=== PATIENT | female | born 1985 ===

== ENCOUNTER 2017-08-13 17:57 | Emergency (ER) | payer OTHER ==
[~2017-08-13] VITALS: Ht 154.9 cm; Wt 56.4 kg
[2017-08-13 18:15] VITALS: TEMP 37.1; Ht 154.9 cm; Wt 56.4 kg
[2017-08-13] MEDS ORDERED: SODIUM CHLORIDE 0.9% 1000ML 1,000 ML IV STA (18:31)
--- NOTE | 2017-08-13 18:47 | EMERGENCY ROOM VISIT NOTE ---
ED Visit Note First contact with patient: 18:21 CHIEF COMPLAINT: Vaginal bleeding HISTORY OF PRESENT ILLNESS: This 31-year-old female presents to the emergency department with complaint of vaginal bleeding and abdominal cramping. She states she has a proximally 10 weeks , she has not had her ultrasound done yet and is scheduled to have this done on the . She states she has had some intermittent vaginal bleeding/spotting since the beginning of the , however this seemed to have slowed down. She states the bleeding started again 2 days ago and today she began to have abdominal cramping, low back pain, and heavier bleeding with some clots. She is A1(elective ). She does not feel dizzy, weak, or faint. There has been no sweating or loss of consciousness. She denies trauma to the abdomen, recent illnesses, or fever. She denies any chest pain, shortness of breath. REVIEW OF SYSTEMS: Head: No headache, injury or neck pain. Neck: No pain, stiffness, or swelling. Neurological: No headache, new changes in mental status, vertigo, focal weakness, numbness. Cardiac: No chest pain, diaphoresis , dyspnea on exertion, orthopnea, pedal edema, or palpitations. Respiratory: No cough, change in sputum, wheezes, hemoptysis, shortness of breath, or stridor. Gastrointestinal: No blood in stools, diarrhea, loss of appetite, nausea, or vomiting. Skin: No rash, new lesions, or masses. PMH: The patient is healthy; there is no significant medical or surgical history. SOCIAL HISTORY: Patient lives at home. PHYSICAL EXAM: Vital Signs: Reviewed Nurse's notes. CONSTITUTIONAL: No acute distress. Well appearing and well nourished. Alert and oriented X 4 with normal affect. HEENT: Normocephalic, atraumatic. Pupils equal, round and reactive to light, EOMI. TMs normal. Pharynx normal. Moist membranes. NECK: Supple, full active range of motion without discomfort. RESPIRATORY: Clear to auscultation bilaterally with no wheezing, crackles, rhonchi or stridor. Equal expansion bilaterally. CARDIOVASCULAR: Regular rate and rhythm with no murmurs, rubs or gallops. Normal peripheral perfusion. No edema. GASTROINTESTINAL: Soft, mildly tender in the suprapubic region, no rebound or guarding, nondistended. Bowel sounds present in all quadrants. PELVIC EXAM: Deferred per patient request. MUSCULOSKELETAL: Full range of motion of all joints without discomfort. INTEGUMENTARY: No rash or other significant dermatologic conditions noted. NEUROLOGIC: Cranial nerves II-XII grossly intact. No focal neurologic deficits noted. IMAGING: PELVIC ULTRASOUND CLINICAL HISTORY: 10 weeks , abdominal pain and bleeding, r/o ectopic, miscarriage COMPARISON STUDY: None. FINDINGS: Transabdominal and transvaginal scanning was performed. There is a single intrauterine gestational sac, yolk sac, and pole. The yolk sac is abnormally enlarged at 7 mm. The pole was 1.1 cm consistent with a 7 week and 1 day intrauterine gestation. However, there is no cardiac motion identified. Small subchorionic hematoma. The ovaries are within normal limits. IMPRESSION: A single intrauterine gestational sac demonstrated to be 7 week and 1 day. However, there is no cardiac activity identified and the pole was measured at 1.1 cm. Therefore, by definition, this is consistent with a failed intrauterine . EMERGENCY DEPARTMENT COURSE: I examined the patient. Differential diagnosis includes threatened miscarriage, bleeding in early , UTI, ectopic , among others. She is Rh positive. CBC shows no acute anemia. HCG beta Quant significantly elevated, this will need to be trended. Pelvic ultrasound shows most likely a demise, with no cardiac activity noted. I spoke on the phone with Dr. Christopher, [facility], regarding the patient 's ultrasound findings. He states the patient can call the clinic tomorrow for close follow-up. I updated the patient on all results and answered all questions at this time. Patient states she is only having light bleeding and small amounts of clots, denies any heavy bleeding, and she would like to defer the pelvic exam at this time. Since she is not having heavy amounts of bleeding or significant pain and her workup has been otherwise unremarkable, I feel comfortable with not performing a pelvic exam at this time. Patient was instructed to call [facility] tomorrow morning to set up a close follow-up appointment, she verbalized understanding. Patient was also given strict return precautions should her symptoms worsen, she verbalized understanding of these. Patient was discharged home in stable condition and ambulatory. The patient was discussed with Dr. Watkins, she agrees with my assessment and plan. Current/Historical Medications No Active Prescriptions or Reported Meds Allergies Coded Allergies: Apple (Verified Allergy, Severe, LIPS ITCH/THROAT SWELLS, 08/13/17) Potato (Verified Allergy, Intermediate, WATERY, ITCHY EYES, 08/13/17) Vital Signs Date Time Temp Pulse Resp B/P (MAP) Pulse Ox O2 Delivery O2 Flow Rate FiO2 08/13/17 20:59 59 16 100/66 100 Room Air 08/13/17 18:15 37.1 71 20 118/74 99 Room Air Laboratory Results 08/13/17 18:40 Red Blood Count 4.33, Mean Corpuscular Volume 90.5, Mean Corpuscular Hemoglobin 31.2, Mean Corpuscular Hemoglobin Concent 34.4, Mean Platelet Volume 11.7, Neutrophils (%) (Auto) 70.1, Lymphocytes (%) (Auto) 21.2, Monocytes (%) (Auto) 6.9, Eosinophils (%) (Auto) 1.2, Basophils (%) (Auto) 0.3, Neutrophils # (Auto) 5.25, Lymphocytes # (Auto) 1.59, Monocytes # (Auto) 0.52, Eosinophils # (Auto) 0.09, Basophils # (Auto) 0.02 08/13/17 18:40 Test 08/13/17 18:40 08/13/17 19:45 White Blood Count 7.49 K/uL (4.8-10.8) Red Blood Count 4.33 M/uL (4.2-5.4) Hemoglobin 13.5 g/dL (12.0-16.0) Hematocrit 39.2 % (37-47) Mean Corpuscular Volume 90.5 fL (80-100) Mean Corpuscular Hemoglobin 31.2 pg (25-34) Mean Corpuscular Hemoglobin Concent 34.4 g/dl (32-36) Platelet Count 173 K/uL (130-400) Mean Platelet Volume 11.7 fL (7.4-10.4) Neutrophils (%) (Auto) 70.1 % Lymphocytes (%) (Auto) 21.2 % Monocytes (%) (Auto) 6.9 % Eosinophils (%) (Auto) 1.2 % Basophils (%) (Auto) 0.3 % Neutrophils # (Auto) 5.25 K/uL (1.4-6.5) Lymphocytes # (Auto) 1.59 K/uL (1.2-3.4) Monocytes # (Auto) 0.52 K/uL (0.11-0.59) Eosinophils # (Auto) 0.09 K/uL (0-0.5) Basophils # (Auto) 0.02 K/uL (0-0.2) RDW Standard Deviation 43.6 fL (36.4-46.3) RDW Coefficient of Variation 13.1 % (11.5-14.5) Immature Granulocyte % (Auto) 0.3 % Immature Granulocyte # (Auto) 0.02 K/uL (0.00-0.02) Anion Gap 9.0 mmol/L (3-11) Est Creatinine Clear Calc Drug Dose 118.2 ml/min Estimated GFR () 147.6 Estimated GFR (Non- 127.3 BUN/Creatinine Ratio 7.9 (10-20) Calcium Level 8.8 mg/dl (8.5-10.1) Total Bilirubin 1.0 mg/dl (0.2-1) Aspartate Amino Transf (AST/SGOT) 21 U/L (15-37) Alanine Aminotransferase (ALT/SGPT) 24 U/L (12-78) Alkaline Phosphatase 69 U/L (45-117) Total Protein 7.6 gm/dl (6.4-8.2) Albumin 3.9 gm/dl (3.4-5.0) Globulin 3.7 gm/dl (2.5-4.0) Albumin/Globulin Ratio 1.1 (0.9-2) Human Chorionic Gonadotropin, Quant 05777 mIU/mL Urine Color YELLOW Urine Appearance CLEAR (CLEAR) Urine pH 7.0 (4.5-7.5) Urine Specific [place] 1.019 (1.000-1.030) Urine Protein NEG (NEG) Urine Glucose (UA) NEG (NEG) Urine Ketones NEG (NEG) Urine Occult Blood 2+ (NEG) Urine Nitrite NEG (NEG) Urine Bilirubin NEG (NEG) Urine Urobilinogen NEG (NEG) Urine Leukocyte Esterase MODERATE (NEG) Urine WBC (Auto) 1-5 /hpf (0-5) Urine RBC (Auto) 0-4 /hpf (0-4) Urine Hyaline Casts (Auto) 1-5 /lpf (0-5) Urine Epithelial Cells (Auto) >30 /lpf (0-5) Urine Bacteria (Auto) NEG (NEG) Medications Administered Medications (Trade) Dose Ordered Sig/Brandy Route Start Time Stop Time Status Last Admin Dose Admin Sodium Chloride 1,000 ml @ 999 mls/hr Q1H1M STAT IV 08/13/17 18:31 08/13/17 19:31 DC 08/13/17 18:31 999 MLS/HR Departure Information Impression Primary Impression: demise Additional Impression: Vaginal bleeding Dispostion Home / Self-Care Condition GOOD Prescriptions No Active Prescriptions or Reported Meds Referrals No Doctor, Assigned (PCP) Patient Instructions ED Miscarriage Inevitable, My [facility] Additional Instructions You should follow-up with OB in the next few days. Please call [facility]'s [facility] OB office at tomorrow morning to have an appointment scheduled for follow-up. You should expect to have some heavy bleeding/blood clots and abdominal cramping similar to period cramping over the next few days. You may take Tylenol or ibuprofen as needed for pain. You may use a heating pad to your abdomen and back or soak in a warm bath for comfort. Please return to the ER for any worsening symptoms, including severe abdominal pain, heavy vaginal bleeding (soaking through more than 1 pad per hour), dizziness or passing out, fevers/chills/feeling ill, or any other concerns. Work Instructions Return To Work: 3 days Problem Qualifiers
[2017-08-13 18:51] LABS: BASO % 0.3 %; BASO ABS # 0.02 K/uL (0-0.2); COMPLETE YES; EOS % 1.2 %; HEMATOCRIT 39.2 % (37-47); IG% 0.3 %; LYMPH % 21.2 %; LYMPH ABS # 1.59 K/uL (1.2-3.4); MEAN CELL VOLUME 90.5 fL (80-100); MEAN CORPUSCULAR HEMOGLOBIN 31.2 pg (25-34); MEAN CORPUSCULAR HGB CONC 34.4 g/dl (32-36); MEAN PLATELET VOLUME 11.7 fL (7.4-10.4); MONO % 6.9 %; NEUT % 70.1 %; PLATELET COUNT 173 K/uL (130-400); RED BLOOD COUNT 4.33 M/uL (4.2-5.4); WHITE BLOOD COUNT 7.49 K/uL (4.8-10.8)
[2017-08-13 19:12] LABS: BUN/CREATININE RATIO 7.9 (10-20); CALCIUM 8.8 mg/dl (8.5-10.1); CREATININE 0.52 mg/dl (0.60-1.20); POTASSIUM 3.2 mmol/L (3.5-5.1)
[2017-08-13 19:15] LABS: ALB/GLOB RATIO 1.1 (0.9-2)
--- NOTE | 2017-08-13 20:06 | DIAGNOSTIC IMAGING REPORT ---
PELVIC ULTRASOUND CLINICAL HISTORY: 10 weeks , abdominal pain and bleeding, r/o ectopic, miscarriage COMPARISON STUDY: None. FINDINGS: Transabdominal and transvaginal scanning was performed. There is a single intrauterine gestational sac, yolk sac, and pole. The yolk sac is abnormally enlarged at 7 mm. The pole was 1.1 cm consistent with a 7 week and 1 day intrauterine gestation. However, there is no cardiac motion identified. Small subchorionic hematoma. The ovaries are within normal limits. IMPRESSION: A single intrauterine gestational sac demonstrated to be 7 week and 1 day. However, there is no cardiac activity identified and the pole was measured at 1.1 cm. Therefore, by definition, this is consistent with a failed intrauterine . Electronically signed by: Harshal Dozier M.D. 08/13/2017 8:05 PM Dictated Date/Time: 08/13/2017 7:56 PM
[2017-08-13 20:07] LABS: URINE APPEARANCE CLEAR (CLEAR); URINE BILIRUBIN NEG (NEG); URINE COLOR YELLOW; URINE EPITHELIAL CELL AUTO >30 /lpf (0-5); URINE NITRITE NEG (NEG); URINE SPECIFIC GRAVITY 1.019 (1.000-1.030); UROBILINOGEN NEG (NEG)
[2017-08-13 20:19] LABS: MANUAL MICROSCOPIC REQUIRED? NO; REVIEW REQ? NO
[2017-08-13 20:59] VITALS: BP 100/66; PULSE 59; O2SAT 100
== END 2017-08-13 21:25 | disposition home or self-care (01) ==
LOC: C.EDB 18:01 → C.EDC 21:25
DX: O36.4XX1 Maternal care for intrauterine death, fetus 1 (principal); O20.8 Other hemorrhage in early pregnancy; Z3A.10 10 weeks gestation of pregnancy

== ENCOUNTER 2017-08-16 08:06 | Emergency (ER) | payer OTHER ==
[~2017-08-16] VITALS: Ht 154.9 cm; Wt 55.8 kg
[2017-08-16 08:09] VITALS: TEMP 36.9; Ht 154.9 cm; Wt 55.8 kg
[2017-08-16 09:10] VITALS: O2SAT 99
[2017-08-16 09:17] LABS: BASO % 0.3 %; BASO ABS # 0.02 K/uL (0-0.2); COMPLETE YES; EOS % 1.5 %; HEMATOCRIT 39.9 % (37-47); IG% 0.2 %; LYMPH ABS # 1.54 K/uL (1.2-3.4); MEAN CELL VOLUME 90.5 fL (80-100); MEAN CORPUSCULAR HEMOGLOBIN 30.8 pg (25-34); MEAN CORPUSCULAR HGB CONC 34.1 g/dl (32-36); MEAN PLATELET VOLUME 11.8 fL (7.4-10.4); MONO % 5.2 %; NEUT % 67.8 %; PLATELET COUNT 168 K/uL (130-400); RED BLOOD COUNT 4.41 M/uL (4.2-5.4); WHITE BLOOD COUNT 6.16 K/uL (4.8-10.8)
[2017-08-16 09:25] LABS: INR 1.1 (0.9-1.1); PROTHROMBIN TIME (PATIENT) 11.9 SECONDS (9.0-12.0)
[2017-08-16 09:34] LABS: BUN/CREATININE RATIO 10.8 (10-20); CALCIUM 8.9 mg/dl (8.5-10.1); CREATININE 0.59 mg/dl (0.60-1.20); POTASSIUM 3.6 mmol/L (3.5-5.1)
[2017-08-16 09:37] LABS: ALB/GLOB RATIO 1.1 (0.9-2)
[2017-08-16 09:41] LABS: URINE APPEARANCE CLEAR (CLEAR); URINE BILIRUBIN NEG (NEG); URINE COLOR DK YELLOW; URINE EPITHELIAL CELL AUTO >30 /lpf (0-5); URINE NITRITE NEG (NEG); URINE PH 6.5 (4.5-7.5); URINE SPECIFIC GRAVITY 1.022 (1.000-1.030); UROBILINOGEN NEG (NEG)
[2017-08-16 09:47] LABS: MANUAL MICROSCOPIC REQUIRED? NO; REVIEW REQ? NO
--- NOTE | 2017-08-16 10:59 | DIAGNOSTIC IMAGING REPORT ---
LIMITED (US) CLINICAL HISTORY: POSSIBLE SPONTANEOUS /PASSED PROD OF CONCEPTION COMPARISON STUDY: ultrasound 08/13/2017. FINDINGS: The intrauterine gestational sac seen on the prior study is no longer visualized and has likely passed in the interval consistent with a spontaneous . The endometrium is slightly heterogeneous and measures up to 9 mm in thickness. No significant color flow within the endometrium. Normal ovaries. 4 mm cystic focus within the right side of the endometrial fundus. IMPRESSION: 1. The intrauterine gestational sac seen on the prior study is no longer visualized and has likely passed in the interval consistent with a spontaneous . 2. No significant color-flow within the heterogeneous endometrium to suggest retained products of conception. 3. There is a 4 mm indeterminate cystic focus within the right side of the endometrium. This could represent a small amount of focal hemorrhage versus retained products of conception. Follow-up pelvic ultrasound and serial beta hCGs is recommended to ensure resolution of this nonspecific finding. Electronically signed by: Harshal Dozier M.D. 08/16/2017 10:58 AM Dictated Date/Time: 08/16/2017 10:49 AM
[2017-08-16 11:34] VITALS: BP 90/56; PULSE 65; O2SAT 98
--- NOTE | 2017-08-16 17:09 | EMERGENCY ROOM VISIT NOTE ---
History First contact with patient: 08:19 Chief Complaint: ED VAG BLEEDING Stated Complaint: MISCARRIAGE History of Present Illness The patient is a 31 year old female who presents to the Emergency Room with complaints of a possible miscarriage. The patient reports that she was in the emergency department 3 days ago with an ultrasound suggesting demise. She was then seen yesterday by Dr. Christopher, [facility], with recommendations to follow -up in their office in 2 weeks if the patient does not have any passage of products of conception.. The patient reports that she got up to go to the bathroom today and had notable vaginal bleeding. She also passed a large amount of tissue. The patient did collect the tissue and brought it with her. The patient reports that she did soak a large pad and one hour, but feels that the bleeding is slowing down. She denies any significant abdominal cramping, nausea, diarrhea or constipation. She rates her discomfort a 3 out of 10. OB history was A1 with her prior being elective. Review of Systems HEENT: Denies dizziness, visual problems, hearing loss, tinnitus. Denies difficulty swallowing or oral lesions. PULMONARY: Denies cough, shortness of breath, sputum production or hemoptysis. CARDIOVASCULAR: Denies chest pain, palpitations, dyspnea on exertion, orthopnea or peripheral edema. GASTROINTESTINAL: Denies diarrhea, constipation, nausea, vomiting, or abdominal pain. GENITOURINARY: Denies dysuria, frequency, urgency or nocturia. Otherwise see history of present illness. NEUROLOGIC: Denies history of epilepsy, CVA, TIA or chronic headaches. MUSCULOSKELETAL: Denies history of joint tenderness/swelling. SKIN: Denies rashes or lesions. PSYCHIATRIC: Denies history of depression or mental illness. ENDOCRINE: Denies history of diabetes or thyroid disorders. Past Medical/Surgical History Medical Problems: (1) No significant past medical history Surgical Problems: (1) History of elective Family History Unremarkable Social History Smoking Status: Never Smoker Alcohol Use: none Drug Use: none Marital Status: Current/Historical Medications No Active Prescriptions or Reported Meds Physical Exam Vital Signs Date Time Temp Pulse Resp B/P (MAP) Pulse Ox O2 Delivery O2 Flow Rate FiO2 08/16/17 11:34 65 18 90/56 98 Room Air 08/16/17 09:57 61 18 106/56 96 Room Air 08/16/17 09:10 99 Room Air 08/16/17 08:09 36.9 73 16 112/61 100 Room Air Physical Exam CONSTITUTIONAL: Healthy and well nourished. Alert and oriented X 3 with positive affect. She does not appear in any acute distress. HEENT: Normocephalic, atraumatic. Pupils equal, round and reactive. No scleral icterus or conjunctival pallor. NECK: Full active range of motion without discomfort. RESPIRATORY: Clear to auscultation bilaterally with no wheezing, crackles, rhonchi or stridor. CARDIOVASCULAR: Regular rate and rhythm with no murmurs, rubs or gallops. GASTROINTESTINAL: Bowel sounds present in all quadrants. Patient has mild abdominal tenderness to palpation. Negative McBurney's point tenderness. Negative CVA tenderness. No rigidity, guarding or rebound. GENITOURINARY: With a female nurse enamel machine operator present, speculum pelvic exam was performed to show mild bleeding from the cervical os. There is no additional soft tissue noted within the os or vaginal vault. MUSCULOSKELETAL: Full range of motion of all joints without discomfort. INTEGUMENTARY: No rash or other significant dermatologic conditions noted. NEUROLOGIC: No focal neurologic deficits noted. Medical Decision & Procedures ER Provider Diagnostic Interpretation: Repeat pelvic ultrasound is suggestive of passage of products of conception. Radiologist report is as follows: LIMITED (US) CLINICAL HISTORY: POSSIBLE SPONTANEOUS /PASSED PROD OF CONCEPTION COMPARISON STUDY: ultrasound 08/13/2017. FINDINGS: The intrauterine gestational sac seen on the prior study is no longer visualized and has likely passed in the interval consistent with a spontaneous . The endometrium is slightly heterogeneous and measures up to 9 mm in thickness. No significant color flow within the endometrium. Normal ovaries. 4 mm cystic focus within the right side of the endometrial fundus. IMPRESSION: 1. The intrauterine gestational sac seen on the prior study is no longer visualized and has likely passed in the interval consistent with a spontaneous . 2. No significant color-flow within the heterogeneous endometrium to suggest retained products of conception. 3. There is a 4 mm indeterminate cystic focus within the right side of the endometrium. This could represent a small amount of focal hemorrhage versus retained products of conception. Follow-up pelvic ultrasound and serial beta hCGs is recommended to ensure resolution of this nonspecific finding. Laboratory Results 08/16/17 09:00 Red Blood Count 4.41, Mean Corpuscular Volume 90.5, Mean Corpuscular Hemoglobin 30.8, Mean Corpuscular Hemoglobin Concent 34.1, Mean Platelet Volume 11.8, Neutrophils (%) (Auto) 67.8, Lymphocytes (%) (Auto) 25.0, Monocytes (%) (Auto) 5.2, Eosinophils (%) (Auto) 1.5, Basophils (%) (Auto) 0.3, Neutrophils # (Auto) 4.18, Lymphocytes # (Auto) 1.54, Monocytes # (Auto) 0.32, Eosinophils # (Auto) 0.09, Basophils # (Auto) 0.02 08/16/17 09:00 Test 08/16/17 09:00 08/16/17 09:20 White Blood Count 6.16 K/uL (4.8-10.8) Red Blood Count 4.41 M/uL (4.2-5.4) Hemoglobin 13.6 g/dL (12.0-16.0) Hematocrit 39.9 % (37-47) Mean Corpuscular Volume 90.5 fL (80-100) Mean Corpuscular Hemoglobin 30.8 pg (25-34) Mean Corpuscular Hemoglobin Concent 34.1 g/dl (32-36) Platelet Count 168 K/uL (130-400) Mean Platelet Volume 11.8 fL (7.4-10.4) Neutrophils (%) (Auto) 67.8 % Lymphocytes (%) (Auto) 25.0 % Monocytes (%) (Auto) 5.2 % Eosinophils (%) (Auto) 1.5 % Basophils (%) (Auto) 0.3 % Neutrophils # (Auto) 4.18 K/uL (1.4-6.5) Lymphocytes # (Auto) 1.54 K/uL (1.2-3.4) Monocytes # (Auto) 0.32 K/uL (0.11-0.59) Eosinophils # (Auto) 0.09 K/uL (0-0.5) Basophils # (Auto) 0.02 K/uL (0-0.2) RDW Standard Deviation 43.6 fL (36.4-46.3) RDW Coefficient of Variation 13.2 % (11.5-14.5) Immature Granulocyte % (Auto) 0.2 % Immature Granulocyte # (Auto) 0.01 K/uL (0.00-0.02) Prothrombin Time 11.9 SECONDS (9.0-12.0) Prothromb Time International Ratio 1.1 (0.9-1.1) Activated Partial Thromboplast Time 25.9 SECONDS (21.0-31.0) Partial Thromboplastin Ratio 1.0 Anion Gap 6.0 mmol/L (3-11) Est Creatinine Clear Calc Drug Dose 104.2 ml/min Estimated GFR () 141.6 Estimated GFR (Non- 122.1 BUN/Creatinine Ratio 10.8 (10-20) Calcium Level 8.9 mg/dl (8.5-10.1) Total Bilirubin 1.5 mg/dl (0.2-1) Aspartate Amino Transf (AST/SGOT) 18 U/L (15-37) Alanine Aminotransferase (ALT/SGPT) 23 U/L (12-78) Alkaline Phosphatase 71 U/L (45-117) Total Protein 7.5 gm/dl (6.4-8.2) Albumin 3.9 gm/dl (3.4-5.0) Globulin 3.6 gm/dl (2.5-4.0) Albumin/Globulin Ratio 1.1 (0.9-2) Human Chorionic Gonadotropin, Quant 7568 mIU/mL Urine Color DK YELLOW Urine Appearance CLEAR (CLEAR) Urine pH 6.5 (4.5-7.5) Urine Specific [place] 1.022 (1.000-1.030) Urine Protein NEG (NEG) Urine Glucose (UA) NEG (NEG) Urine Ketones NEG (NEG) Urine Occult Blood 3+ (NEG) Urine Nitrite NEG (NEG) Urine Bilirubin NEG (NEG) Urine Urobilinogen NEG (NEG) Urine Leukocyte Esterase TRACE (NEG) Urine WBC (Auto) 1-5 /hpf (0-5) Urine RBC (Auto) 5-10 /hpf (0-4) Urine Hyaline Casts (Auto) 1-5 /lpf (0-5) Urine Epithelial Cells (Auto) >30 /lpf (0-5) Urine Bacteria (Auto) NEG (NEG) The above labs were reviewed. ED Course Patient history and physical exam were performed. Nurse's notes were reviewed. Vital signs were reviewed and were normal. IV access was established, and labs were drawn. Labs were grossly normal. Quantitative beta hCG is about half of what it was 3 days ago. Pelvic ultrasound is suggestive of spontaneous with passage of products of conception. I then discussed the case further with Dr. Christopher who suggested having the patient call the office for an appointment next week so that her quantitative beta hCG can be further tract. She was instructed to contact their office sooner with any persistent bleeding, returning to the Emergency Department with ranjan hemorrhage, fever or other concerning symptoms. The patient was happy with plan of care, and voiced understanding of all discharge instructions. Medical Decision Medication Reconcilliation Current Medication List: was personally reviewed by me Blood Pressure Screening Patient's blood pressure: Normal blood pressure Impression Primary Impression: Spontaneous in first trimester Departure Information Dispostion Home / Self-Care Condition FAIR Prescriptions No Active Prescriptions or Reported Meds Forms HOME CARE DOCUMENTATION FORM, IMPORTANT VISIT INFORMATION Patient Instructions [facility] Additional Instructions Call your [facility] office to schedule an appointment for next week for follow-up of a spontaneous (miscarriage). Return to the emergency department over the weekend for any progressively worsening bleeding, abdominal pain, fever or vomiting. FOR WORK: Please excuse from work today, Saturday08/16/17.
== END 2017-08-16 12:26 | disposition home or self-care (01) ==
LOC: C.EDB 08:07
DX: O03.9 Complete or unspecified spontaneous abortion without complication (principal)